=== PATIENT | female | born 1980 | race Caucasian/White ===

== ENCOUNTER → 2016-11-30 | Outpatient (CLI) | payer BC ==
--- NOTE | 2016-11-30 17:42 | CT ---
EXAMINATION TYPE: CT sinus wo con DATE OF EXAM: 11/30/2016 COMPARISON: NONE HISTORY: DIFFICULTY BREATHING THROUGH NOSE, HX OF SEPTOPLASTY. CT DLP: 603.0 mGycm. Automated Exposure Control for Dose Reduction was Utilized. TECHNIQUE: CT scan of the sinuses is performed without contrast, axial images are obtained, coronal r eformatted images are also reviewed. FINDINGS: Orbital margins are intact. There is no sign of a blowout fracture. There is patency of the ostiomeatal complex bilaterally. There is fairly normal development and aeration of the paranasal si nuses. I see no bony destructive process. Maxilla is intact. There is normal aeration of the visualiz ed mastoid air cells. Zygomatic arches appear normal. Nasal bone is intact. There is symmetric mild h ypertrophy of the nasal turbinates. There is no sign of an orbital mass. IMPRESSION: Mild hypertrophy of the nasal turbinates. Otherwise negative exam. No evidence of sinusit is..
== END | disposition home or self-care (01) ==
LOC: RADCTMAIN 16:22
PROVIDERS: ATTEND Family Medicine
DX: J34.3 Hypertrophy of nasal turbinates (principal); J32.9 Chronic sinusitis, unspecified
CPT/HCPCS: 70486

== ENCOUNTER → 2018-08-15 | Outpatient (CLI) | payer BC ==
[2018-08-15 10:54] VITALS: BMI 32.1
== END | disposition home or self-care (01) ==
LOC: LABWHC1 08:47
PROVIDERS: ATTEND Family Medicine
DX: E66.9 Obesity, unspecified (principal); Z68.39 Body mass index [BMI] 39.0-39.9, adult
CPT/HCPCS: 97802